=== PATIENT | female | born 1975 | race Caucasian/White ===

== ENCOUNTER 2016-11-17 22:30 | Emergency (ER) | payer OTHER ==
[2016-11-17 23:15] VITALS: BP 117/73
== END 2016-11-17 23:15 | disposition home or self-care (01) ==
LOC: ED 22:30
DX: K04.7 Periapical abscess without sinus (principal)

== ENCOUNTER 2019-02-26 09:45 | Inpatient (IN) | payer MEDICAID ==
[~2019-02-26] VITALS: Ht 162.6 cm; Wt 54.0 kg
[2019-02-26 09:52] VITALS: Ht 162.6 cm; Wt 54.0 kg
--- NOTE | 2019-02-26 10:30 | NUR ---
PT PRESENTS TO ED WITH C/O VAGINAL BLEEDING X4 DAY AND LEFT SIDED PELVIC PAIN X2 DAYS. PT REPORTS CHANGING HER PADS AT LEAST 5X A DAY. PT STS PELVIC PAIN FEELS LIKE BURNING AND RADIATES TO BACK SIDE. PT DENIES PREGNACY, FEVER, CHILLS, SOB, OR DIZZINESS. PT PLACED ON FULL CM, AAOX4, RESP E/U, NO ACUTE DISTRESS NOTED AT THIS TIME. WILL CONTINUE TO MONITOR, CALL LIGHT WITHIN REACH.
[2019-02-26 10:42] LABS: BASOPHIL % 1.1 % (0-2); PLATELET COUNT 342 x10^3mcL (130-400)
[2019-02-26 10:50] LABS: POTASSIUM SERUM 4.1 mmol/L (3.5-5.1); RED CELL DISTRIBUTION WIDTH 21.6 % (11.5-14.5); SODIUM SERUM 139 mmol/L (136-145)
[2019-02-26 11:11] LABS: ALBUMIN 3.7 g/dL (3.4-5.0); ALKALINE PHOSPHATASE 63 U/L (46-116); ALT/SGPT 27 U/L (14-59); AST/SGOT 10 U/L (15-37); BILIRUBIN TOTAL 0.26 mg/dL (0.20-1.00); CALCIUM 8.8 mg/dL (8.5-10.1); CARBON DIOXIDE 24.7 mmol/L (21-32); CHLORIDE SERUM 105 mmol/L (98-107); CREATININE SERUM 0.5 mg/dL (0.6-1.0); GFR1 > 60 mL/min; GLUCOSE SERUM 92 mg/dL (74-106); TOTAL PROTEIN, SERUM 7.5 g/dL (6.4-8.2)
--- NOTE | 2019-02-26 11:35 | NUR ---
PT OFF FLOOR TAKEN FOR CT SCAN VIA RNEY.
--- NOTE | 2019-02-26 12:01 | NUR ---
CHAPERONED DURING PT PELVIC EXAM. PT TOLERATED PROCEDURE WELL.
--- NOTE | 2019-02-26 12:24 | NUR ---
PT OFF FLOOR TAKEN FOR ULTRA SOUND VIA WHEEL CHAIR.
--- NOTE | 2019-02-26 14:03 | NUR ---
PT REQUESTING TO EAT OR DRINK. PT IS CURRENTLY NPO, PT REMINDED OF HER DIET STATUS.
--- NOTE | 2019-02-26 14:15 | NUR ---
PT C/O 01/14 PELVIC PAIN, DR. MORA MADE AWARE.
[2019-02-26 14:31] LABS: T3 TOTAL 0.89 ng/mL
[2019-02-26 14:48] LABS: CHOLESTEROL/HDL RATIO 3.2
--- NOTE | 2019-02-26 14:55 | NUR ---
PRBC TRANSFUSION STARTED, PT AAOX4, RESP E/U, NO ACUTE DISTRESS NOTED AT THIS TIME.
[2019-02-26 15:09] LABS: FREE T4 0.86 ng/dL (0.76-1.46); T4(THYROXINE) 5.8 ug/dL (4.7-13.3)
--- NOTE | 2019-02-26 15:39 | NUR ---
REPORT GIVEN TO BRITTA CERVANTES ON ICU TO ASSUME CARE OF PT.
--- NOTE | 2019-02-26 16:10 | NUR ---
PRBC TRANSFUSION COMPLETED, PT AAOX4, RESP E/U, NO ACUTE DISTRESS NOTED. NO ADVERSE REACTIONS NOTED.
[2019-02-26 16:33] VITALS: BP 107/64
--- NOTE | 2019-02-26 16:53 | NUR ---
AT 1627 - RECEIVED PATIENT FROM ER NURSE. SETTLED IN ROOM, ORIENTED TO SURROUNDINGS AND PALCED ON CARDIAC MONITORING. ADMITTED WITH VAGINAL BLEEDING AND DX OF SYMPTOMATIC ANEMIA. PATIENT HAS RECEIVED 1 UNIT OF PRBC IN ER. PATIENT IS AWAKE, ALERT AND ORIENTED TO PERSON, PLACE, TIME AND SITUATION. BP 107/64. HR 50'S. O2 SAT 98% ON ROOM AIR. HISTORY OBTAINED FROM PATIENT. AT 1640 - IV INFUSION OF NS COMMENCED AT 100 ML/HR. PATIENT IS NPO. REPORT LOWER ABDOMINAL, BURNING TYPE PAIN 10/14. PATIENT WAS MEDICATED IN ER WITH IV MORPHINE. AT 1650 - SEEN BY DR MURRY. DR SPOKE WITH PATIENT ABOUT PLAN OF TREATMENT. PLAN FOR D&C TOMORROW AM. MAY EAT TONIGHT AND BE NPO AFTER MIDNIGHT.
--- NOTE | 2019-02-26 17:33 | NUR ---
PATIENT EATING DINNER. AT BEDSIDE. BP STABLE AT 104/68 MAP 78.
[2019-02-26 17:40] VITALS: BP 104/68
--- NOTE | 2019-02-26 18:14 | NUR ---
INFLUENZA AND PNEUMOCCOCAL VACCINES ADMINISTERED PER EMAR. PATIENT HAS EATEN DINNER. NO C/O NAUSEA.
[2019-02-26 18:37] VITALS: BP 114/63
--- NOTE | 2019-02-26 18:50 | NUR ---
RESTING QUIETLY. NO C/O PAIN AT THIS TIME. VSS REMAIN STABLE. MONITOR SHOWING SINUS RHYTHM. IV INFUSING NS AT 100 ML/HR. WILL ENDORSE CARE TO NIGHT NURSE.
--- NOTE | 2019-02-26 19:30 | NUR ---
RECEIVED REPORT FROM [facility] RN. PATIENT IS ALERT AND ORIENTED X4. LETHARGIC. PUPILS REACTIVE TO LIGHT. PT IS BREATHING E.U ON RA. LUNG SOUNDS CLEAR TO BILATERAL UPPER LOBES, DIMINISHED TO BILATERAL LOWER LOBES. S1 S2 HEART SOUNDS AUSCULTATED. PULSES MODERATE X4. CAP REFILL <3 SECS X4. SKIN IS WARM AND CONSISTENT WITH ETHNICITY. PERIPHERAL IV TO RIGHT AC PATENT, DRESSING CDI. NS INFUSING AT 100 ML/HR. NO EDEMA NOTED. PT ABD ROUNDED AND SOFT. COMPLAINS OF ABD PAIN 7/10 BUT NOT REQUESTING PAIN MEDICATION AT THIS TIME. PT VOIDS FREELY USING BEDSIDE COMMODE. ALL QUESTIONS AND CONCERNS ANSWERED. WILL CONTINUE TO MONITOR.
--- NOTE | 2019-02-26 23:30 | NUR ---
PT MAP 57 AT THIS TIME, EVEN AFTER TROUBLESHOOTING BLOOD PRESSURE CUFF AND REPOSITIONING. NO SUCCESS. CALL DR. RODGERS AND STATED TO ORDER 500 ML IV BOLUS OF NS. WILL FOLLOW THROUGH.
--- NOTE | 2019-02-27 00:30 | NUR ---
ONCE IV BOLUS OF 500 ML NS WAS COMPLETED, MAP WAS THEN 55. ONCE AGAIN CALLED DR. RODGERS. STATED THAT SHE WOULD COME DOWN TO THE UNIT.
--- NOTE | 2019-02-27 00:57 | NUR ---
DR. RODGERS ON FLOOR. RECOMMENDED ANOTHER 500 ML NS BOLUS BECAUSE PT'S MAP NOW 64. DR. MARTINES. WILL FOLLOW THROUGH WITH ORDER.
--- NOTE | 2019-02-27 01:30 | NUR ---
SECOND 500 ML NS BOLUS COMPLETED. MAP CONTINUES TO REMAIN IN THE HIGH 50'S. ORDERED 3RD 500 ML NS BOLUS. DOES NOT WANT TO START LOW DOSE LEVOPHED. WILL FOLLOW THROUGH WITH ORDERS.
--- NOTE | 2019-02-27 06:11 | NUR ---
DR. PACHECO AT BEDSIDE FOR OPDATES. ALL QUESTIONS AND CONCERNS ANSWERED. MADE DR. PACHECO AWARE OF LOW BP. DR INCREASED FLUIDS FROM 100 ML/HR TO 125 ML/HR. ALL QUESTIONS AND CONCERNS ANSWERED. WILL FOLLOW THROUGH WITH ORDERS.
--- NOTE | 2019-02-27 07:10 | NUR ---
REPORT GIVEN TO BRITTA PANIAGUA. ALL QUESTIONS AND CONCERNS ANSWERED.
--- NOTE | 2019-02-27 07:14 | NUR ---
RECEIVED REPORT FROM DARRYL CALLEJAS. PATIENT RESTING COMFORTABLY IN BED WITH AT BEDSIDE. IV TO RAC IS PATIENT AND INFUSION OF NS @ 125 STOPPED TO PREPARE FOR TRANSPORT TO OR. АНДРЕЙ WIPES COMPLETED AT THIS TIME. VITALS TAKEN AND STABLE (SEE DOCUMENTATION). PT ON ROOM AIR WITH NO DISTRESS NOTED. PT C/O LEFT SIDED ABDOMINAL PAIN. ALL QUESTIONS AND CONCERNS ADDRESSED.
[2019-02-27 07:30] VITALS: BP 103/56
--- NOTE | 2019-02-27 07:35 | NUR ---
DR Sue WILBUR IN TO SEE PATIENT AND DISCUSS NEW PLAN OF ADDITIONAL LAPAROSCOPY WITH POSSIBLE OPEN LAPAROTOMY. PT AND VERBALIZED UNDERSTANDING. PATIENT TAKEN TO OR VIA GUERNEY ACCOMPANIED BY BRITTA CHAPPELL. AWAITING PATIENT RETURN TO FLOOR.
[2019-02-27 09:00] LABS: CALCIUM 7.5 mg/dL (8.5-10.1); CARBON DIOXIDE 21.2 mmol/L (21-32); CHLORIDE SERUM 111 mmol/L (98-107); CREATININE SERUM 0.6 mg/dL (0.6-1.0); GFR1 > 60 mL/min; GLUCOSE SERUM 119 mg/dL (74-106); MAGNESIUM 1.6 mg/dL (1.8-2.4); PHOSPHOROUS 2.5 mg/dL (2.5-4.9); POTASSIUM SERUM 3.9 mmol/L (3.5-5.1); SODIUM SERUM 139 mmol/L (136-145)
--- NOTE | 2019-02-27 09:29 | NUR ---
RECEIVED REPORT FROM MISTI CALLEJAS. PATIENT TOLERATED PROCEDURE WELL BUT PAIN IS NOT YET UNDER CONTROL. ALL QUESTIONS AND CONCERNS ADDRESSED. LAPAROTOMY W/ RT OVARIAN CYSTECTOMY DONE. AWAITING PATIENT RETURN TO FLOOR ONCE PAIN IS UNDER CONTROL.
[2019-02-27 09:47] LABS: BASOPHIL % 0.7 % (0-2); PLATELET COUNT 290 x10^3mcL (130-400)
[2019-02-27 09:49] VITALS: BP 106/55
--- NOTE | 2019-02-27 09:49 | NUR ---
PATIENT RETURNED TO FLOOR VIA BED ACCOMPANIED BY BRITTA CHAPPELL. PATIENT IS DROWSY BUT AROUSABLE WITH PAIN UNDER CONTROL. FLUIDS RESUMED TO RAC (NS @ 125 ML/HR). NEW IV NOTED TO LT WRIST IS PATENT AND INTACT. NO REDNESS OR PAIN. VITAL TAKEN AND STABLE SEE DOCUMENTATION. INCISIONS X2 ( SMALL FROM LAPAROSCOPE AND LARGE FROM LAPAROTOMY) ARE BOTH COVERED WITH 4X4 AND TAPE. CDI. ALL QUESTIONS AND CONCERNS ADDRESSED.
[2019-02-27 09:50] LABS: RED CELL DISTRIBUTION WIDTH 21.3 % (11.5-14.5); rbc morphology (normal/abnorm) ABNORMAL (NORMAL)
--- NOTE | 2019-02-27 12:03 | NUR ---
REPORT GIVEN TO DOMONIQUE CALLEJAS ON 2N. PATIENT TO TRANSFER TO ROOM 237-B. ALL QUESTIONS AND CONCERNS ADDRESSED. ALL CARES ENDORSED.
[2019-02-27 12:54] VITALS: BP 101/52
--- NOTE | 2019-02-27 13:30 | NUR ---
RECEIVED PATIENT FROM ICU. PATIENT IS LETHARGIC FROM PROCEDURE. HOWEVER, ALERT AND ORIENTEDX4, ABLE TO COMMUNICATE, FOLLOWS COMMANDS. FACIAL AND PERIPHERAL EDEMA NOTED. EXPLAINED TO BE FROM OR. PATIENT STATES ABD PAIN. WILL GIVE NORCO. PATIENT O2 SAT IS 90%. WILL PLACE HER ON OXYGEN 2L. SHE IS NOT NORMALLY ON O2. ABLE TO VOID WELL. AMBULATES WITH GENERALIZED WEAKNESS FROM PROCEDURE. ALL QUESTIONS AND CONCERNS HAVE BEEN ADDRESSED. WILL CONTINUE TO MONITOR PATIENT.
[2019-02-27 14:30] VITALS: BP 105/63
[2019-02-27 16:56] VITALS: BP 105/62
--- NOTE | 2019-02-27 17:33 | NUR ---
PATIENT IS ALERT AND ORIENTED X4. PATIENT STILL STATES ABD PAIN. GAVE NORCO FOR A SECOND TIME AT 1730. PATIENT HAS VOIDED ONCE. SITE DOES NOT DISPLAY ANY BLEEDING. DRESSINGS ARE CDI. PATIENT DOES NOT EXPRESS ANY OTHER DISCOMFORT. CURRENTLY RESTING WHILE EATING DINNER. IS PRESENT. WILL CONTINUE TO MONITOR.
--- NOTE | 2019-02-27 20:12 | NUR ---
PT. SLEEPING, EASY TO WAKE. ORIENTED X4. DENIES HEADACHE OR DIZZINESS. BREATH SOUNDS CLEAR THROUGHOUT LUNG WADSWORTH, RESP. EVEN, UNLABORED. PT. ON RA. SIG. OTHER AT BEDSIDE. S/P EX LAP W/ OVARIAN CYSTECTOMY. DRSG TO LOWER ABD CDI. NO DRAINAGE NOTED. ABD. SOFT AND ROUND. BOWEL SOUNDS ACTIVE. IVF INFUSING WELL, SITE INTACT. CALL LIGHT WITHIN REACH. PT. STATED THAT SHE HAS PAIN, 10 AT THIS TIME BUT DOES NOT WANT ANY PAIN MEDICATION. PT. ENCOURAGED TO RECEIVED PAIN MEDICATION IN TIMELY MANNER BECAUSE IT WILL TAKE LONGER FOR PAIN MEDICATION TO WORK.
[2019-02-27 20:18] VITALS: BP 93/66
--- NOTE | 2019-02-28 00:59 | NUR ---
PT. RESTING QUIETLY, AT BEDSIDE. IVF INFUSING WELL, SITE INTACT. NO COMPLAINTS AT THIS TIME. CALL LIGHT WITHIN REACH. WILL CONTINUE TO MONITOR.
[2019-02-28 04:55] VITALS: BP 95/55
[2019-02-28 07:17] LABS: BASOPHIL % 0.5 % (0-2); PLATELET COUNT 250 x10^3mcL (130-400)
[2019-02-28 07:25] LABS: CALCIUM 7.9 mg/dL (8.5-10.1); CARBON DIOXIDE 22.5 mmol/L (21-32); CHLORIDE SERUM 110 mmol/L (98-107); CREATININE SERUM 0.6 mg/dL (0.6-1.0); GFR1 > 60 mL/min; GLUCOSE SERUM 89 mg/dL (74-106); MAGNESIUM 1.7 mg/dL (1.8-2.4); PHOSPHOROUS 3.1 mg/dL (2.5-4.9); POTASSIUM SERUM 3.7 mmol/L (3.5-5.1); SODIUM SERUM 142 mmol/L (136-145)
--- NOTE | 2019-02-28 07:29 | NUR ---
SPOKE WITH DR. BOWLES, UPDATED HIM ON PT.'S NIGHT. NO NEW ORDERS OBTAINED. DAY NURSE, ASHOK, MADE AWARE.
[2019-02-28 07:42] LABS: RED CELL DISTRIBUTION WIDTH 21.6 % (11.5-14.5); rbc morphology (normal/abnorm) ABNORMAL (NORMAL)
[2019-02-28 08:36] VITALS: BP 112/71
--- NOTE | 2019-02-28 08:43 | NUR ---
AAO TIMES 4. TELE # 24 SR. LUNGS CTA. NO SOB. O2 SAT ON RA 95%. BS'S ACTIVE TIMES 4. HAWKINS STRONG. DRESSING TO ABDOMEN CDI. C/O NO BM IN 5 DAYS, TOOK RAE THIS AM, I WILL NOTIFY MD FOR FURTHER ORDERS FOR THIS. PERIPHERAL PULSES PALPABLE. NO EDEMA. IV SITE CDI. COOPERATIVE. AT BEDSIDE, SUPPORTIVE.
[2019-02-28] MEDS ORDERED: DUL10S RC (10:32)
--- NOTE | 2019-02-28 10:32 | NUR ---
C/O CONSTIPATION. DR Abelardo OBWLES ORDERED MOM AND DULCOLOX SUPPOSITORY, BOTH WERE GIVEN AT 1018. MAG 1.7, MILITARY [employer] DESIGNER PEGGY AWARE AND ORDERED MAG PO 400 MG, I GAVE THAT AT 1018.
[2019-02-28] MEDS ORDERED: APAP/HYDROCODON1 T13 PO (10:33)
--- NOTE | 2019-02-28 11:51 | NUR ---
[facility]. THERE WAS A MODERATE AMOUNT OF SANGUINOUS DRAINAGE ON THE DRESSING. I CLEANSED THE WOUND WITH WOUND CLEANSER. I TOOK A PHOTO, THERE ARE 13 PETRA AND THE INCISION IS CDI, WITH A VERY SMALL AMOUNT OF OOZING OF BLOOD IN THE CENTER AREA. I APPLIED A DRY ADHESIVE ISLAND WOUND DRESSING, AND GAVE HER 2 EXTRA ONES IN CASE SHE NEEDS IT AT HOME, IF THE INCISION IS STILL DRAINING. I GAVE HER SUPPLIES FOR WOUND CLEANING ALSO, EXTRA SURGICAL UNDERWEAR AND PADS AND OSEAS MAE FOR THE DULCOLOX THAT WAS SENT TO HER PHARMACY.
--- NOTE | 2019-02-28 13:58 | NUR ---
PATIENT AWARE THAT VERSE WRITER WAS MADE AWARE THAT THEY NEED TO FIND AN DIE CAST OPERATOR DR FOR HER TO FOLLOW UP WITH. SHE IS AWARE STAFF MIDWIFE FROM HERE [place] CONTACT HER WITH AN APPT AND PHONE NUMBER/ADDRESS OF AN OB DR.
--- NOTE | 2019-02-28 14:16 | NUR ---
REMOVED SALINE LOCK ANGIO INTACT. FAMILY PRESENT, SUPPORTIVE. SHE HAD A BM, SO SHE REFUSED THE FLEETS ENEMA.
== END 2019-02-28 14:15 | disposition home or self-care (01) | DRG 519 ==
LOC: ED 09:45 → MU 12:53 → IC 12:53 → ED 12:53 → IC 16:27 → DU 02-27 12:35
PROVIDERS: Emergency Medicine; Obstetrics & Gynecology; ADMIT General Practice
PROC: 30233N1 Transfusion of Nonautologous Red Blood Cells into Peripheral Vein, Percutaneous Approach (ICD-10-PCS; 2019-02-26)
PROC: 0UJ34ZZ Inspection of Ovary, Percutaneous Endoscopic Approach (ICD-10-PCS; 2019-02-27)
PROC: 0UN10ZZ Release Left Ovary, Open Approach (ICD-10-PCS; 2019-02-27)
PROC: 0UDB7ZZ Extraction of Endometrium, Via Natural or Artificial Opening (ICD-10-PCS; 2019-02-27)
PROC: 0UB00ZZ Excision of Right Ovary, Open Approach (ICD-10-PCS; principal; 2019-02-27 07:30)
DX: D25.9 Leiomyoma of uterus, unspecified (principal); K66.1 Hemoperitoneum; I95.89 Other hypotension; E83.51 Hypocalcemia; E83.42 Hypomagnesemia; D62 Acute posthemorrhagic anemia; N83.01 Follicular cyst of right ovary; N92.1 Excessive and frequent menstruation with irregular cycle; N73.6 Female pelvic peritoneal adhesions (postinfective)
CPT/HCPCS: 84439; 87046; 87046-59; 90658; 90732; C1758; G0378; J0330; J0690; J1170; J1885; J2270; J2405; J2704; J2710; J3010; J3490; J7030; J7040; J7120; P9016; Q0092; Q9967

== ENCOUNTER 2019-03-04 19:46 | Emergency (ER) | payer MEDICAID ==
[~2019-03-04] VITALS: Ht 162.6 cm; Wt 55.3 kg
[~2019-03-04 19:46] MED LIST: APAP/HYDROCODON1 T13 PO; DUL10S RC
[2019-03-04 19:51] VITALS: Ht 162.6 cm; Wt 55.3 kg
[2019-03-04 20:54] LABS: BASOPHIL % 0.5 % (0-2); PLATELET COUNT 338 x10^3mcL (130-400); RED CELL DISTRIBUTION WIDTH 22.7 % (11.5-14.5)
[2019-03-04 20:56] LABS: CALCIUM 8.8 mg/dL (8.5-10.1); CARBON DIOXIDE 26.1 mmol/L (21-32); CHLORIDE SERUM 104 mmol/L (98-107); CREATININE SERUM 0.7 mg/dL (0.6-1.0); GFR1 > 60 mL/min; GLUCOSE SERUM 99 mg/dL (74-106); POTASSIUM SERUM 3.7 mmol/L (3.5-5.1); SODIUM SERUM 140 mmol/L (136-145)
[2019-03-04 21:01] LABS: ALBUMIN 3.3 g/dL (3.4-5.0); ALKALINE PHOSPHATASE 66 U/L (46-116); ALT/SGPT 36 U/L (14-59); AST/SGOT 23 U/L (15-37); BILIRUBIN TOTAL 0.3 mg/dL (0.20-1.00); TOTAL PROTEIN, SERUM 7.4 g/dL (6.4-8.2)
[2019-03-04 21:35] LABS: rbc morphology (normal/abnorm) ABNORMAL (NORMAL)
[2019-03-04 23:14] VITALS: BP 107/66
== END 2019-03-04 23:14 | disposition home or self-care (01) ==
LOC: ED 19:46
PROVIDERS: Emergency Medicine
DX: R10.30 Lower abdominal pain, unspecified (principal); R53.1 Weakness; R11.0 Nausea; Z98.890 Other specified postprocedural states
CPT/HCPCS: J2270; Q9967

== ENCOUNTER 2019-05-22 16:18 | Emergency (ER) | payer MEDICAID ==
[~2019-05-22] VITALS: Ht 162.6 cm; Wt 52.8 kg
[2019-05-22 16:44] VITALS: Ht 162.6 cm; Wt 52.8 kg
[2019-05-22 17:00] LABS: BASOPHIL % 0.8 % (0-2); PLATELET COUNT 301 x10^3mcL (130-400); RED CELL DISTRIBUTION WIDTH 21.4 % (11.5-14.5)
[2019-05-22 17:18] LABS: CALCIUM 8.9 mg/dL (8.5-10.1); CARBON DIOXIDE 27.1 mmol/L (21-32); CHLORIDE SERUM 106 mmol/L (98-107); CREATININE SERUM 0.6 mg/dL (0.6-1.0); GFR1 > 60 mL/min; GLUCOSE SERUM 97 mg/dL (74-106); POTASSIUM SERUM 4.3 mmol/L (3.5-5.1); SODIUM SERUM 142 mmol/L (136-145)
[2019-05-22 17:30] LABS: ALBUMIN 3.8 g/dL (3.4-5.0); ALKALINE PHOSPHATASE 55 U/L (46-116); ALT/SGPT 20 U/L (14-59); AST/SGOT 14 U/L (15-37); BILIRUBIN TOTAL 0.5 mg/dL (0.20-1.00); TOTAL PROTEIN, SERUM 7.7 g/dL (6.4-8.2)
[2019-05-22 18:27] LABS: microscopic required? YES; urine erythrocyte 3+ (NEGATIVE)
[2019-05-22 18:50] VITALS: BP 117/75
== END 2019-05-22 18:50 | disposition home or self-care (01) ==
LOC: ED 16:18
PROVIDERS: Emergency Medicine
DX: N83.202 Unspecified ovarian cyst, left side (principal); Z98.890 Other specified postprocedural states
CPT/HCPCS: 36415; 87491; 87591; J1885